=== PATIENT | female | born 1960 | race Caucasian/White ===

== ENCOUNTER 2024-12-19 10:08 | Emergency (ER) | payer MEDICARE, SELFPAY ==
[2024-12-19 10:15] VITALS: BP 174/87; PULSE 103; RESP 20; TEMP 36.9; O2SAT 100
[2024-12-19 10:34] LABS: EDUAAPPEAR Cloudy; EDUABILI Negative (Negative); EDUABLOOD 2+ (Negative); EDUACOLOR1 Yellow; EDUAGLUCOSE Negative (Negative); EDUAKETONE Negative (Negative); EDUALEUKO 3+ (Negative); EDUANITRATE Negative (Negative); EDUAPH 7.0; EDUAPROTEIN Negative (Negative); EDUASPGRAVITY 1.015; EDUAUROBILI 0.2
--- NOTE | 2024-12-19 10:59 | ED.FEMALEGU ---
HPI - Female Genitourinary General Chief complaint: Urogenital-Female Stated complaint: UTI Time Seen by Provider: 12/19/24 10:35 Source: patient and RN notes reviewed Mode of arrival: ambulatory Limitations: no limitations History of Present Illness HPI Narrative: 64-year-old female presents [facility] complaining of urinary symptoms for 5 days. Patient reports having dysuria, increased frequency, blood in her urine, suprapubic pressure. Patient denies any fevers, abdominal pain, body aches, flank pain, chills, nausea, vomiting, diarrhea. Patient has not taken anything [id number] for symptoms. Patient denies any significant past medical history. Related Data Home Medications ?Medication ?Instructions ?Recorded ?Confirmed ?Last Taken ?Type metformin 500 mg tablet mg 12/19/24 Unknown History rosuvastatin 10 mg tablet mg 12/19/24 Unknown History valsartan 160 tablet 12/19/24 Unknown History mg-hydrochlorothiazide 12.5 mg tablet Allergies Allergy/AdvReac Type Severity Reaction Status Date / Time empagliflozin (From Allergy Intermediate Abdominal Verified 12/19/24 10:20 Jardiance) Pain dulaglutide (From Trulicity) Allergy Mild Abdominal Verified 12/19/24 10:20 Pain Review of Systems Review of Systems: CONSTITUTIONAL: Denies fever, chills, body aches, or sweats. EYES: Denies visual changes, redness, or discharge. ENT: Denies rhinorrhea, congestion, sore throat, or otalgia. CARDIOVASCULAR: Denies chest pain, palpitations, or edema. RESPIRATORY: Denies cough or dyspnea. GASTROINTESTINAL: Denies abdominal pain, nausea, vomiting, or diarrhea. GENITOURINARY: Positive for dysuria, increased frequency, hematuria. Negative for vaginal bleeding. SKIN: Denies rash or itching. MUSCULOSKELETAL: Denies back pain, flank pain, joint pain, or myalgia. NEUROLOGIC: Denies headache, numbness, or weakness. PSYCHIATRIC: Denies anxiety or depression. All other systems reviewed are negative, except as documented in HPI. PMFSH Comments At the time of my signature, I reviewed and agree with the nursing past medical, surgical, social, and family history. There is no relevant family history pertinent to the patient complaint. Exam Narrative: GENERAL: This is a well-nourished, well-developed adult, in no apparent distress. They are non ill-appearing, nontoxic appearing. HEAD: normocephalic, atraumatic. EYES: Sclera clear/white. Vision is grossly intact. Conjunctiva normal bilaterally. Extraocular movements intact. EARS: External ears normal,Hearing grossly intact. NOSE: External nose normal THROAT: Mucous membranes moist NECK: Normal range of motion CARDIOVASCULAR: Regular rate and rhythm. Normal S1-S2. No clicks, gallops, rubs, murmurs. RESPIRATORY: Respiratory rate normal, respiratory effort nonlabored, no respiratory distress. Lung sounds clear to auscultation throughout. Lung sounds equal bilaterally. No adventitious lung sounds. GASTROINTESTINAL: Abdomen soft, flat, non-tender, nondistended. Bowel sounds are active. No hepato-splenomegaly, or palpable masses. No guarding or rigidity. No rebound tenderness. SKIN: warm, Dry, intact with no suspicious lesions or rash, good texture and turgor. NEURO: awake, alert, and oriented to person, place and time. There were no obvious focal neurologic abnormalities. EXTREMITIES: No joint tenderness, effusion, or edema noted. BACK: Nontender without deformity. No CVA tenderness. Course Course Emergency Course: Portions of this record may have been created with voice recognition software Level of Care: Express Care Visit Vital Signs Vital signs: Vital Signs Temperature 98.4 F 12/19/24 10:15 Pulse Rate 103 H 12/19/24 10:15 Respiratory Rate 12/19/24 10:15 Blood Pressure 174/87 H 12/19/24 10:15 Pulse Oximetry 100 12/19/24 10:15 Oxygen Delivery Room Air 12/19/24 10:15 Temperature 98.4 F 12/19/24 10:15 Pulse Rate 103 H 12/19/24 10:15 Respiratory Rate 12/19/24 10:15 Blood Pressure 174/87 H 12/19/24 10:15 Pulse Oximetry 100 12/19/24 10:15 Oxygen Delivery Room Air 12/19/24 10:15 MDM - Female Genitourinary MDM Narrative Medical decision making narrative: Urine dipstick shows evidence of urinary tract infection. Urine culture pending. Symptoms consistent with UTI. Will prescribe cephalexin. Discussed physical exam findings. Advised supportive measures and signs/symptoms to go to the ER. Pt is appropriate for outpt treatment and f/u. Differential Diagnosis Differential diagnosis: Likely urinary tract infection, cystitis and other (Pyelonephritis) Lab Data Attestation: I reviewed the patient's lab results. Labs: Lab Results 12/19/24 Range/Units 10:26 POC Urine Color Yellow POC Urine Clarity Cloudy POC Urine pH 7.0 POC Ur Specif [place] 1.015 POC Urine Protein Negative (Negative) POC Ur Glucose (UA) Negative (Negative) POC Urine Ketones Negative (Negative) POC Urine Blood 2+ (Negative) POC Urine Nitrite Negative (Negative) POC Urine Bilirubin Negative (Negative) POC Urine Urobilinogen 0.2 POC U Leukocyte Esteras 3+ (Negative) Discharge Plan Discharge Clinical Impression: Urinary tract infection Qualifiers: Urinary tract infection type: site unspecified Hematuria presence: with hematuria Qualified Code(s): N39.0 - Urinary tract infection, site not specified Patient Disposition: Home Condition: Stable Instructions: Antibiotic Form, Urinary Tract Infection in Older Adults (ED) Additional Instructions: Take the antibiotic as prescribed The urine will be sent of for a culture to identify what type of bacteria is causing your infection. If the culture shows that the antibiotic will not get rid of your infection, you will be notified and a new antibiotic will be called in for you. Increase water intake you will need to follow up with your PCP 3-5 days. Go to the ER for any worsening symptoms, abdominal pain, fevers, nausea, vomiting, or any other concerns Patient Language: [place] Prescriptions: New cephalexin 500 mg capsule 500 mg PO BID 5 Days Qty: 10 0RF No Action metformin 500 mg tablet valsartan-hydrochlorothiazide 160-12.5 mg tablet rosuvastatin 10 mg tablet Follow-up/Referrals: Fifi,MD Carmina [Primary Care Provider] Time of Disposition: 10:48
== END 2024-12-19 10:51 | disposition home or self-care (01) ==
PROVIDERS: PCP Internal Medicine Geriatric Medicine
DX: N39.0 Urinary tract infection, site not specified (principal); E11.9 Type 2 diabetes mellitus without complications; Z79.84 Long term (current) use of oral hypoglycemic drugs; I10 Essential (primary) hypertension; E78.00 Pure hypercholesterolemia, unspecified
CPT/HCPCS: 81003; 87086; 87186; 99213; G0463